=== PATIENT | male | born 1955 | race Caucasian/White ===

== ENCOUNTER → 2017-03-26 | Outpatient (CLI) | payer OTHER ==
[~2017-03-26] MED LIST: ASPI-496 PO; ATOR40TA78 PO; CHOL10003 PO; HYDR25TA6 PO; IRBE300T16 PO; MULT-516 PO; OMEG1CAP12 PO; OMEP10CA4 PO
[2017-03-26 14:14] LABS: ASPARTATE AMINO TRANSFERASE 42 U/L (15-37); BLOOD UREA NITROGEN 16 mg/dL (7-18)
== END | disposition home or self-care (01) ==
LOC: STAR 13:04
PROVIDERS: ATTEND Internal Medicine Gastroenterology
DX: Z01.818 Encounter for other preprocedural examination (principal); K31.7 Polyp of stomach and duodenum
CPT/HCPCS: 36415; 80053; 82247; 82248; 82728; 85025; 93005

== ENCOUNTER 2017-04-02 08:04 | Day surgery (SDC) | payer OTHER ==
[~2017-04-02] VITALS: Ht 182.9 cm; Wt 126.0 kg
[2017-04-02] MEDS ORDERED: LACTATED RINGERS 1,000 ML IV SCH (08:20)
[2017-04-02] MEDS ORDERED: FENTANYL PF 250 MCG/5ML ONE (09:20)
[2017-04-02] MEDS ORDERED: MIDAZOLAM 1 MG/ML, 2ML ONE (09:20)
[2017-04-02] MEDS ORDERED: SUCCINYLCHOLINE 20 MG/ML, 10ML ONE (09:25)
[2017-04-02] MEDS ORDERED: ONDANSETRON 2MG/ML, 2ML ONE (09:25)
[2017-04-02] MEDS ORDERED: DEXAMETHASONE 4 MG/ML, 1ML ONE (09:25)
[2017-04-02] MEDS ORDERED: KETOROLAC 30 MG/1 ML ONE (09:25)
[2017-04-02] MEDS ORDERED: ROCURONIUM 10 MG/ML ONE (09:25)
[2017-04-02] MEDS ORDERED: NEOSTIGMINE 1 MG/ML, 10ML ONE (09:25)
[2017-04-02] MEDS ORDERED: PROPOFOL 10 MG/ML, 20ML ONE (09:25)
[2017-04-02] MEDS ORDERED: GLYCOPYRROLATE 0.2MG/1ML ONE (09:25)
[2017-04-02] MEDS ORDERED: ACETAMINOPHEN 325 MG TABLET PO PRN (10:00)
[2017-04-02] MEDS ORDERED: hydrALAzine 20 MG/ML, 1ML IV PRN (10:00)
[2017-04-02] MEDS ORDERED: OXYcodone 5 MG/5 ML ORAL.SOL UDC PO PRN (10:00)
[2017-04-02] MEDS ORDERED: LABETALOL 5MG/ML, 20ML IV PRN (10:00)
[2017-04-02] MEDS ORDERED: PROMETHAZINE 25 MG/ML, 1ML IV PRN (10:00)
[2017-04-02] MEDS ORDERED: METOPROLOL 1 MG/ML, 5ML IV PRN (10:00)
[2017-04-02] MEDS ORDERED: MIDAZOLAM 1 MG/ML, 2ML IV PRN (10:00)
[2017-04-02] MEDS ORDERED: MEPERIDINE/PF 25MG/0.5ML IVPush PRN (10:00)
[2017-04-02] MEDS ORDERED: ALBUTEROL SULFATE 2.5 MG/3 ML NPPB PRN (10:00)
[2017-04-02] MEDS ORDERED: ONDANSETRON 2MG/ML, 2ML IVPush PRN (10:00)
[2017-04-02] MEDS ORDERED: EPHEDRINE 50 MG/ML, 1ML IVPush PRN (10:00)
[2017-04-02] MEDS ORDERED: FENTANYL PF 100 MCG/2ML IV PRN (10:00)
[2017-04-02] MEDS ORDERED: HYDROmorphone 1 MG/ML, 1ML IV PRN (10:00)
[2017-04-02] MEDS ORDERED: INDOMETHACIN 50 MG SUPP.RECT ONE (10:06)
[2017-04-02] MEDS ORDERED: INDOMETHACIN 50 MG SUPP.RECT PR ONE (10:30)
[2017-04-02] MEDS ORDERED: OMNIPAQUE 350 MG/ML, 50 ML BOTTLE ONE (13:30)
== END 2017-04-02 11:30 | disposition home or self-care (01) ==
LOC: OUT 08:04
PROVIDERS: ATTEND Internal Medicine Gastroenterology
DX: K80.51 Calculus of bile duct without cholangitis or cholecystitis with obstruction (principal); K57.10 Diverticulosis of small intestine without perforation or abscess without bleeding; K83.8 Other specified diseases of biliary tract; I10 Essential (primary) hypertension; K21.9 Gastro-esophageal reflux disease without esophagitis; E66.9 Obesity, unspecified; E78.00 Pure hypercholesterolemia, unspecified; F15.90 Other stimulant use, unspecified, uncomplicated; Z68.38 Body mass index [BMI] 38.0-38.9, adult; Z98.890 Other specified postprocedural states; Z72.89 Other problems related to lifestyle
CPT/HCPCS: 43261; 43262; 43264; 74330; 88305; C1769; J0330; J1100; J1885; J2250; J2405; J2704; J2710; J3010; J7120; Q9967; J3490